=== PATIENT | female | born 1960 | race Caucasian/White ===

== ENCOUNTER → 2016-10-09 | Outpatient (CLI) | payer SELFPAY ==
[~2016-10-09] MED LIST: ALBUTEROL17 GM INH; ALL DAY ALLERGY10 M3 PO; ASPIRIN81 M2 PO; BRISDELLE7.5 MG PO; CATAPRES0.1 MG PO; GLUCOPHAGE500 MG PO; LO-DOSE ASPIRIN81 M1 PO; METFORMIN HCL500 M4 PO; METOPROLOL TAR25 MG PO; MOBIC PO; PHENTERMINE PO; PREMARIN0.45 MG PO; PREMPRO 0.45-11 EACH PO; TOPROL XL 50 MG50 MG PO; ZYRTEC10 M2 PO
== END | disposition home or self-care (01) ==
LOC: CBAR 08:24
DX: Z01.818 Encounter for other preprocedural examination (principal); E66.01 Morbid (severe) obesity due to excess calories
CPT/HCPCS: G0463

== ENCOUNTER → 2016-11-06 | Outpatient (CLI) | payer SELFPAY | END | disposition home or self-care (01) | LOC: CBAR 08:00 | DX: Z01.818 Encounter for other preprocedural examination (principal); E66.01 Morbid (severe) obesity due to excess calories | CPT/HCPCS: G0463 ==

== ENCOUNTER → 2016-12-05 | Outpatient (CLI) | payer SELFPAY | END | disposition home or self-care (01) | LOC: CBAR 08:10 | DX: Z01.818 Encounter for other preprocedural examination (principal); E66.01 Morbid (severe) obesity due to excess calories | CPT/HCPCS: G0463 ==

== ENCOUNTER → 2017-01-10 | Outpatient (CLI) | payer SELFPAY | END | disposition home or self-care (01) | LOC: CBAR 06:09 | DX: Z01.818 Encounter for other preprocedural examination (principal); E66.01 Morbid (severe) obesity due to excess calories | CPT/HCPCS: G0463 ==

== ENCOUNTER → 2017-02-22 | Outpatient (CLI) | payer BC ==
--- NOTE | ~2017-02-22 | CR63 ---
[facility] A Service of [facility] & [facility] RADIOLOGY TEXT RESULTS PATIENT: WALE ZEE LOCATION: [facility] : 64 UNIT #: [id number] AGE: [address]: Marlon Bell III, MD SEX: F ORDER DR: [id number] [facility] [address] [place], [place] [address] [id number] O MR#: [id number] Acc #: [id number] NAME: WAEL ZEE : 1960 SEX: F STUDY DATE/TIME: 02/22/2017 8:36 UNIT: [facility] ROOM: STUDY DESCRIPTION: CR Chest 2 View Attending Physician: Marlon Bell III, M.D. Referring Physician: Marlon Bell III, M.D. Ordering Physician: Marlon Bell III, M.D. Primary Care Physician: Jeff Hawkins M.D. MEDICAL IMAGING REPORT This report is preliminary unless electronic signature is present EXAM Chest, 02/22/2017, [facility]. HISTORY 56-year-old woman preop clearance for laparoscopic adjustable gastric band placement and possible paraesophageal hernia repair. COMPARISON None. FINDINGS PA and lateral chest views show normal cardiac size and configuration. Hilar structures and mediastinal contours are preserved. Lungs are expanded and clear bilaterally. IMPRESSION Negative chest. Dictated by... Hoang Hodgson M.D. THIS IS AN ELECTRONICALLY VERIFIED REPORT Hoang Hodgson M.D. at 02/22/2017 10:34 AM SHANE/julio TD: 02/22/2017 10:18 JOB #: [id number] MEDICAL IMAGING REPORT Page 1 of 1 COPY
--- NOTE | ~2017-02-22 | EKG ---
PATIENT: WALE ZEE UNIT #: [id number] Ventricular Rate: 76 BPM Atrial Rate: 76 BPM P-R Interval: 136 ms QRS Duration: 112 ms Q-T Interval: 416 ms QTC Calculation(Bezet): 468 ms P [place]: 25 degrees Calculated R [place]: 71 degrees Calculated T [place]: 28 degrees Diagnosis Line: Normal sinus rhythm Diagnosis Line: Low voltage QRS Diagnosis Line: Incomplete right bundle branch block Diagnosis Line: Junctional ST depression, probably normal Diagnosis Line: Borderline ECG Diagnosis Line: No previous ECGs available Diagnosis Line: Confirmed by GLORY GORDON MD ([id number]) on Diagnosis Line: 02/24/2017 11:13:51 PM INTERPRETING MD: HEIDI NEGRON
--- NOTE | ~2017-02-22 | CR97 ---
[facility] A Service of [facility] & [facility] RADIOLOGY TEXT RESULTS PATIENT: WALE ZEE LOCATION: [facility] : 64 UNIT #: [id number] AGE: [address]: Marlon Bell III, MD SEX: F ORDER DR: [id number] [address] [place], [place] [address] [id number] O MR#: [id number] Acc #: [id number] NAME: WALE ZEE : 1960 SEX: F STUDY DATE/TIME: 02/22/2017 9:29 UNIT: [facility] ROOM: STUDY DESCRIPTION: CR Esophagram Attending Physician: Marlon Bell III, M.D. Referring Physician: Marlon Bell III, M.D. Ordering Physician: Marlon Bell III, M.D. Primary Care Physician: Jeff Hawkins M.D. MEDICAL IMAGING REPORT This report is preliminary unless electronic signature is present EXAM Esophagram INDICATIONS Morbid obesity. Preop for LAP-band surgery. FINDINGS Fluoro time 0.4 minutes. 18 images were submitted. Thoracic esophagus is normal in course and caliber. No evidence of hiatal hernia or reflux. IMPRESSION Normal. Dictated by... Danyel Perry M.D. THIS IS AN ELECTRONICALLY VERIFIED REPORT Danyel Perry M.D. at 02/25/2017 7:25 AM ARS/pcl TD: 02/22/2017 17:02 JOB #: [id number] MEDICAL IMAGING REPORT Page 1 of 1 COPY
[2017-02-22 09:54] LABS: HEMATOCRIT 40.1 % (35.0-45.0); HEMOGLOBIN 13.6 gm/dL (12.0-16.0); MEAN CELL VOLUME 89.2 FL (83-96); MEAN CORPUSCULAR HEMOGLOBIN 30.1 PG (28-34); MEAN CORPUSCULAR HGB CONC 33.8 g/dL (30-36); MEAN PLATELET VOLUME 8.4 FL (6.5-11.5); RED BLOOD COUNT 4.5 X10e (3.90-5.30); RED CELL DISTRIBUTION WIDTH 13.4 % (11.0-15.5); WHITE BLOOD COUNT 4.7 X10e3 (4.0-10.5)
[2017-02-22 10:20] LABS: ALBUMIN SERUM 4.1 g/dL (3.5-5.0); BILIRUBIN,TOTAL 0.4 mg/dL (0.2-2.0); BUN/CREATININE RATIO 15.55; CALCIUM SERUM 9.1 mg/dL (8.4-10.2); CREATININE SERUM 0.9 mg/dL (0.6-1.4); GLOM FILT RATE Estimated 72.5 mL/min (>60); PROTEIN TOTAL SERUM 6.9 g/dL (6.0-8.3)
== END | disposition home or self-care (01) ==
LOC: CRAD 08:11 → CAMB 09:00
PROVIDERS: Surgery
DX: Z01.818 Encounter for other preprocedural examination (principal); E66.01 Morbid (severe) obesity due to excess calories
CPT/HCPCS: 36415; 71020; 74220; 80053; 80061; 84443; 85027; 93005

== ENCOUNTER → 2017-03-06 | Day surgery (SDC) | payer BC ==
--- NOTE | ~2017-03-06 | OR ---
Unit #: [id number] #: [id number] Patient: WALE ZEE [id number] [facility] [address]. [place], [place] [address] [id number] O MR#: [id number] NAME: WALE ZEE ROOM: Date of Procedure: 03/06/2017 Admission Date: 03/06/2017 Surgeon: Marlon Bell III, M.D. : 1960 Attending Physician: Marlon Bell III, M.D. Primary Care Physician: Jeff Hawkins M.D. OPERATIVE REPORT PREOPERATIVE DIAGNOSIS Chronic morbid obesity. POSTOPERATIVE DIAGNOSIS Chronic morbid obesity. SECONDARY DIAGNOSIS Anterior paraesophageal hernia. PROCEDURES PERFORMED Laparoscopic adjustable gastric banding (AP standard with regular port) and laparoscopic paraesophageal hernia repair. CHEMIST PHARMACEUTICAL Dr. Ari Duran. SPECIMENS None. COMPLICATIONS None apparent. ESTIMATED BLOOD LOSS Minimal. ANESTHESIA General endotracheal tube anesthesia. INDICATIONS FOR PROCEDURE This is a 56-year-old lady, who has chronic morbid obesity with a BMI of 42 and associated comorbidities of hypertension and diabetes. She has been through the bariatric program at [facility] and understands the risks and benefits of the procedure. DESCRIPTION OF PROCEDURE After consent was obtained, including the risks and benefits of slippage, erosion, port dysfunction, and possible failure of weight loss due to noncompliance, the patient was taken to the operating room and placed in the supine position. General anesthetic was administered and the abdomen was prepped and draped in standard surgical fashion. I began by making a 2 cm incision just above and to the left of the Unit #: [id number] #: [id number] Patient: WALE ZEE umbilicus. I used a Visiport to enter the peritoneal cavity without any difficulty. C02 pneumoperitoneum was then established. Next, I placed a 5 mm port in the right upper quadrant, a 5 mm Tanner liver retractor in the subxiphoid region to provide exposure of the gastroesophageal junction. Next, a 10 mm port was placed in the left upper quadrant and a 5 mm port was placed in the left lateral subcostal region. I began by performing an examination of the GE junction to evaluate for a hiatal hernia. We then scored the peritoneal attachments overlying the angle of His. I then opened up the clear space in the gastrohepatic ligament, and then using 2 blunt graspers, I identified the small fat pad crossing over the right crura. I swept the fat anterior to the crura off the crura and using the pars flaccida, I created a retrogastric tunnel where the blunt grasper exited at the angle of His. Once I had made this tunnel safely, I then inserted an Allergan AP band into the abdominal cavity. This adjustable gastric band was then place around the upper part of the stomach and fastened and buckled anteriorly. We then tacked the lateral fundus over the band to the proximal pouch with 2 interrupted 0 Ethibond sutures. I then used a third stitch to imbricate the excess anterior stomach by going from the lesser curvature up towards where the last stitch was placed. We then had excellent hemostasis. I removed the Tanner liver retractor. We then removed the port tubing through the initial port incision. The rest of the ports were removed, and the pneumoperitoneum was released. I then left a small tail on the tubing. We then attached the port to the excess band tubing. We placed a piece of Prolene mesh along the back side of the port and used a Prolene stitch to anchor this mesh in place. We then trimmed the excess mesh so that just a small footprint of mesh was in place behind the port. I then inserted the tubing back into the abdominal cavity, and we placed the port into a small pocket that was made just inferior to where our initial port incision was made. The mesh was in direct contact with the fascia, and this will scar in place to hold the port in place. We then injected all the port sites with 0.25% plain Marcaine, and I reapproximated the skin edges with interrupted 4-0 Vicryl subcuticular sutures. Steri-strips were then applied. The patient tolerated the procedure without any problems and returned to the recovery room in stable condition. ADDENDUM After exposure of the GE junction, the patient was noted to have a small to medium size anterior paraesophageal hernia. I scored the phrenoesophageal ligament, reduced the hernia defect including the hernia sac and after identifying both the right and left crura, reapproximated the defect with an interrupted 0 Ethibond [id number] suture. I then proceeded with the case as listed above. Dictated by... Marlon Bell III, M.D. VCL/brad TD: 03/07/2017 01:28 JOB #: [id number] Unit #: [id number] #: [id number] Patient: WALE ZEE OPERATIVE REPORT Page 1 of 1 X Marlon Bell III, MD PROCEDURE OPERATIVE NOTE
--- NOTE | ~2017-03-06 | CR7 ---
[facility] A Service of [facility] & [facility] RADIOLOGY TEXT RESULTS PATIENT: WALE ZEE LOCATION: [facility] : 64 UNIT #: [id number] AGE: [address]: Marlon Bell III, MD SEX: F ORDER DR: [id number] [facility] [address]. [place], [place] [address] [id number] O MR#: [id number] Acc #: [id number] NAME: WALE ZEE : 1960 SEX: F STUDY DATE/TIME: 03/06/2017 8:29 UNIT: [facility] ROOM: STUDY DESCRIPTION: CR Abdomen Single AP View Attending Physician: Marlon Bell III, M.D. Ordering Physician: Marlon Bell III, M.D. Primary Care Physician: Jeff Hawkins M.D. MEDICAL IMAGING REPORT This report is preliminary unless electronic signature is present EXAM KUB, 03/06 INDICATION Gastric band placement today. FINDINGS Supine view of the left side of the abdomen was obtained. Gastric band is present within a phi angle of about 53 degrees. The visualized bowel gas pattern is normal. IMPRESSION Gastric band in place with a phi angle of 53 degrees. Dictated by... Darshan Anguiano Jr., M.D. THIS IS AN ELECTRONICALLY VERIFIED REPORT Darshan Anguiano Jr., M.D. at 03/06/2017 4:38 PM MARISA/nahomi TD: 03/06/2017 10:25 JOB #: [id number] MEDICAL IMAGING REPORT Page 1 of 1 COPY
== END | disposition home or self-care (01) ==
LOC: CSUR 05:43
DX: E66.01 Morbid (severe) obesity due to excess calories (principal); K44.9 Diaphragmatic hernia without obstruction or gangrene; I10 Essential (primary) hypertension; E11.42 Type 2 diabetes mellitus with diabetic polyneuropathy; J45.909 Unspecified asthma, uncomplicated; Z68.41 Body mass index [BMI] 40.0-44.9, adult; Z87.891 Personal history of nicotine dependence; Z85.51 Personal history of malignant neoplasm of bladder; Z88.8 Allergy status to other drugs, medicaments and biological substances; Z88.2 Allergy status to sulfonamides; Z88.5 Allergy status to narcotic agent; Z79.84 Long term (current) use of oral hypoglycemic drugs; Z79.82 Long term (current) use of aspirin; Z79.899 Other long term (current) drug therapy; Z98.890 Other specified postprocedural states
CPT/HCPCS: 74000; 82947; C1781; J0330; J0690; J1650; J1885; J2250; J2405; J2710; J3010; L8699